=== PATIENT | male | born 1970 | race Caucasian/White ===

== ENCOUNTER 2018-09-28 11:09 | Emergency (ER) | payer BC ==
[2018-09-28] MEDS ORDERED: Bacitracin/Neomycin/Polymyxin B Oint 0.9 GM U/D Packet TOP ONE (11:12)
--- NOTE | 2018-09-28 11:12 | EDM.PDOC ---
ED HPI GENERAL MEDICAL PROBLEM - General Chief Complaint: Upper Extremity Injury/Pain Stated Complaint: left hand pain Time Seen by Provider: 09/28/18 11:12 Source of Information: Reports: Family (Daughter- Heavenly), Old Records (As below) , Other ([facility] chart/EMR including both [place] records. 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 The patient did rinse out the laceration sites with tapwater, however no subsequent treatment, including Neosporin dressings, recent NSAIDs, etc. No history of paresthesias, neurological deficits, foreign body, local signs of infection, or other complaints or injuries. He is a somewhat historian, however. He did take an oxycodone at about 9 AM this morning with current discomfort at 4/10. The patient denies any chest pain/pressure, heart flutter, orthostasis, orthopnea, diaphoresis, paresthesias, recent decreased exercise tolerance, or any other anginal-type symptoms, although occasional nonspecific dizziness. No recent history of abdominal pain, heartburn, nausea, diarrhea, melena, gross hematochezia, or any food intolerance, including fatty foods, etc.. He denies any gross hematuria, colic, or other UTI symptoms. The patient also denies any recent fever, cough, wheezing, dyspnea, etc.. No history of recent headaches, visual changes, diplopia, change in mental status, or other change in neurological status. The patient is right-handed. Onset: Sudden Onset Date: 09/27/18 Onset Time: 21:00 Duration: Constant Location: Reports: Upper Extremity, Left. Denies: Head, Face, Neck, Chest, Abdomen, Back, Pelvis, Upper Extremity, Right, Radiates to Quality: Reports: Ache Severity: Mild Improves with: Reports: Rest Worsens with: Reports: Movement Context: Reports: Trauma (As above) Associated Symptoms: Reports: No Other Symptoms. Denies: Confusion, Chest Pain , Cough, Diaphoresis, Fever/Chills, Headaches, Loss of Appetite, Malaise, Nausea /Vomiting, Rash, Seizure, Shortness of Breath, Syncope, Weakness Treatments DEVELOPMENT AND HOUSING DIRECTOR: Reports: Dressing(s), Other Medication(s) Left Hand Pain Score (Numeric/FACES): 4 - Related Data Allergies Allergy/AdvReac Type Severity Reaction Status Date / Time No Known Allergies Allergy Verified 09/28/18 11:15 Home Meds: Home Meds Amoxicillin/Potassium Clav [Augmentin 875-125 Tablet] 1 each PO BIDMEALS #20 tablet 09/28/18 [Rx] DULoxetine [Cymbalta] 60 mg PO BEDTIME 09/28/18 [History] Glycopyrrolate 1 tab PO BID 09/28/18 [History] Pregabalin [Lyrica] 1 cap PO TID 09/28/18 [History] QUEtiapine [SEROquel] 3 tab PO BEDTIME 09/28/18 [History] atorvaSTATin Calcium [Lipitor] 1 tab PO BEDTIME 09/28/18 [History] buPROPion HCl [Wellbutrin Xl] 1 tab PO BEDTIME 09/28/18 [History] oxyCODONE HCl [Oxycodone HCl] 1 - 2 tab PO Q6HR PRN 09/28/18 [History] Past Medical History HEENT History: Reports: Allergic Rhinitis, Hard of Hearing, Impaired Vision, Otitis Media, Other (See Below). Denies: Cataract, Glaucoma, Macular Degeneration, Retinal Detachment Other HEENT History: He wears glasses with occasional soft contact use. Bilateral hearing loss since childhood possibly secondary to recurrent otitis media with no previous PE tubes, etc.. No current hearing aide therapy. Cardiovascular History: Reports: Arrhythmia, High Cholesterol, Hypertension, Syncope, Other (See Below). Denies: Afib, Aneurysm, Blood Clots/VTE/DVT, CAD, Heart Failure, Heart Murmur, MS, PVD Other Cardiovascular History: History of hypotension with recurrent syncope in early 2018. Complete right bundle branch block. Genitourinary History: Reports: Chronic Renal Insuffiency, Other (See Below) Other Genitourinary History: Renal insufficiency in September 2018 with no workup to this point. Musculoskeletal History: Reports: Osteoarthritis, Other (See Below) Other Musculoskeletal History: Back surgeries as below. History of CK elevation of unknown etiology. Almonte's cyst of the right knee in November 2012 by MRI Psychiatric History: Reports: Addiction, Anxiety, Bipolar, Depression, Psych Hospitalization(s), Psychosis, Other (See Below) Other Psychiatric History: History of bipolar disorder including sade since his teenage years. Note previous history of alcohol abuse including previous alcohol treatment as below Endocrine/Metabolic History: Reports: Obesity/BMI 30+, Other (See Below) Other Endocrine/Metabolic History: Hyperhidrosis. Testosterone deficiency. Hyperglycemia in September 2018 with no workup to this point. Hematologic History: Reports: Anemia, Other (See Below). Denies: Blood Transfusion(s) Other Hematologic History: Anemia of unknown etiology in September 2018 with no workup to this point. - Past Surgical History HEENT Surgical History: Reports: Adenoidectomy, Oral Surgery, Tonsillectomy, Other (See Below) Other HEENT Surgeries/Procedures: Tonsillectomy and adenoidectomy at age 5. [place] teeth extraction 4 although in stages with last was some tooth extraction in about 1999. GI Surgical History: Reports: Appendectomy, Other (See Below) Other GI Surgeries/Procedures: Appendectomy on 06/02/00. Male Surgical History: Reports: Circumcision, Vasectomy, Other (See Below) Other Male Surgeries/Procedures: Circumcision as an . Vasectomy 2005. Neurological Surgical History: Reports: Discectomy, Lumbar Spine, Spinal Fusion , Other (See Below) Other Neurological Surgeries/Procedures: L-spine discectomy with spinal fusion on 08/17/18 with subsequent hardware removal and lumbar bone graft with additional fusion? on 09/15/18. Musculoskeletal Surgical History: Reports: Arthroscopic Knee, Arthroscopic Procedure, Other (See Below) Other Musculoskeletal Surgeries/Procedures:: Right knee arthroscopic surgery in September 2003 with subsequent right medial meniscal repair in 2012. - Past Imaging History Past Imaging History: Reports: Cardiac Echo (05/09/18 with ejection fraction of 60 65 percent.), MRI (Right knee on 11/28/12) Social & Family History - Tobacco Use Smoking Status *Q: Current Every Day Smoker Tobacco Use Within Last Twelve Months: Snuff/Dip Years of Tobacco use: 24 Packs/Tins Daily: 0.5 Used Tobacco, but Quit: No Smoking Cessation Information Provided To Patient: Yes Second Hand Smoke Exposure: No - Caffeine Use Caffeine Use: Reports: Soda (4 sodas per day). Denies: Coffee, Energy Drinks, Tea - Alcohol Use Alcohol Use History: Yes Days Per Week of Alcohol Use: 2 Number of Drinks Per Day: 2 Number of Drinks Per Day Comment: Usually beer. DUI in 1993 with previous alcohol treatment in about 2007. Total Drinks Per Week: 4 Alcohol Use in Last Twelve Months: Yes Alcohol Use Frequency: Weekly - Recreational Drug Use Recreational Drug Use: No Drug Use in Last 12 Months: No Recreational Drug Type: Denies: Amphetamines (Speed), Cocaine, Heroin, Inhalants (Glues, Solvents, Aerosols), LSD (Acid), Methamphetamine, Oxycodone - Living Situation & Occupation Living situation: Reports: (2014, 3 children), with Family (Daughter, Heavenly) Occupation: Employed ([employer]) Review of Systems - Review of Systems Review Of Systems: ROS reveals no pertinent complaints other than HPI. ED EXAM, GENERAL - Physical Exam Exam: See Below Exam Limited By: No Limitations General Appearance: Alert, WD/WN, No Apparent Distress, Anxious (Borderline) Head: Atraumatic, Normocephalic. No: Facial Swelling, Facial Tenderness, Sinus Tenderness Neck: Normal Inspection, Supple, Non-Tender, Full Range of Motion. No: Lymphadenopathy (L), Lymphadenopathy (R), Thyromegaly Respiratory/Chest: No Respiratory Distress, Lungs Clear, Normal Breath Sounds, No Accessory Muscle Use, Chest Non-Tender. No: Pleural Rub, Retractions Cardiovascular: Normal Peripheral Pulses, Regular Rate, Rhythm, No Edema, No Gallop, No JVD, No Murmur, No Rub. No: Gallop/S3, Gallop/S4, Friction Rub Peripheral Pulses: 2+: Radial (L), Radial (R) GI/Abdominal: Normal Bowel Sounds, Soft, Non-Tender, No Organomegaly, No Distention, No Abnormal Bruit, No Mass, Other (obese). No: Guarding (Male) Exam: Deferred Rectal (Males) Exam: Deferred Back Exam: Decreased Range of Motion (Secondary to recent back surgery), Paraspinal Tenderness (Mild at operative site), Other (10 cm in length surgical site in the lumbar region with shahab in place with no evidence of drainage, erythema, or local signs of infection. Approximately 23 centimeter area of moderate swelling in the superior aspect of operative site, however.). No: CVA Tenderness (L), CVA Tenderness (R), Muscle Spasm Extremities: No Pedal Edema, Normal Capillary Refill, Limited Range of Motion ( Digits #2 and 3 of the left hand secondary to lacerations/discomfort however no evidence of significant tendon involvement), Other (Irregular 8 cm in length somewhat deeper lacerations over the extensor surfaces of the second and third fingers with no evidence of foreign body, acute bleeding, drainage, or signs of infection. Moderate eschar formation. No evidence of joint or significant nerve involvement patient able to make a fist, movehis fingers, etc.). No: Non- Tender (Mild palpation pain at laceration sites as below), Slow Capillary Refill , Joint Swelling, Julienne's Sign, Increased Warmth, Redness Neurological: Alert, Oriented, CN II-XII Intact, Normal Cognition, Normal Gait, Normal Reflexes, No Motor/Sensory Deficits Psychiatric: Anxious (Borderline), Depressed Mood (Borderline), Flat Affect ( Mild). No: Tearful Skin Exam: Wound/Incision (As above). No: Diaphoretic, Ecchymosis, Erythema, Lymphangitis, Pallor Lymphatic: No Adenopathy ED TRAUMA EXTREMITY PROCEDURES - Splinting Left 2nd Digit Splint Site: Digit #2 of the left hand Pre-Procedure NV Status: Normal Post-Procedure NV Status: Normal Splint Material: Aluminum-Foam (3 hole padded finger splint) Splint Design: Extensor (/Flexor) Applied & Form Fitted By: Nurse Provider Post-Splint Application NV Check: NV Status Normal, Good Position Complications: No Course - Vital Signs Last Recorded V/S: Last Vital Signs Temp 35.9 C 09/28/18 11:11 Pulse 90 09/28/18 12:40 Resp 18 09/28/18 12:40 BP 104/68 09/28/18 12:40 Pulse Ox 96 09/28/18 12:40 Vital Signs - 24 hr 09/28/18 09/28/18 09/28/18 11:11 11:20 12:04 Temperature [ 35.9 C Temporal] Pulse, 97 100 96 Peripheral [ Pulse Oximetry] Respiratory 18 18 Rate Blood Pressure 78/45 L 86/50 L 85/53 L [Right Arm] O2 Sat by Pulse 95 94 L Oximetry 09/28/18 12:40 Temperature [ Temporal] Pulse, 90 Peripheral [ Pulse Oximetry] Respiratory 18 Rate Blood Pressure 104/68 [Right Arm] O2 Sat by Pulse 96 Oximetry - Orders/Labs/Meds Orders: Active Orders 24 hr Category Date Time Status Cardiac Monitoring [RC] . DIRECTED Care 09/28/18 11:21 Active Peripheral IV Care [RC] . DIRECTED Care 09/28/18 11:20 Active Vaccines to be Administered [RC] PER UNIT ROUTINE Care 09/28/18 12:51 Active Hand Comp Min 3V Lt [CR] Stat Exams 09/28/18 11:15 Taken Sodium Chloride 0.9% [Saline Flush] Med 09/28/18 11:20 Active 10 ml FLUSH ASDIRECTED PRN Obtain Past Medical Record [OM.PC] Routine Oth 09/28/18 11:13 Active Peripheral IV Insertion Adult [OM.PC] Routine Oth 09/28/18 11:20 Ordered Medication Orders Sodium Chloride (Saline Flush) 10 ml FLUSH ASDIRECTED PRN PRN Reason: Keep Vein Open Labs: Laboratory Tests 09/28/18 09/28/18 09/28/18 Range/Units 11:25 11:25 11:25 WBC 9.2 (4.0-10.2) K/uL RBC 3.74 L (4.33-5.41) M/uL Hgb 10.6 L D (13.1-16.8) g/dL Hct 31.1 L (39.0-49.0) % MCV 83.2 L (84.0-98.0) fL MCH 28.3 (28.2-33.3) pg MCHC 34.1 (31.7-36.0) g/dL RDW 12.8 (11.2-14.1) % Plt Count 332 D (150-350) K/uL Neut % (Auto) 64.8 (45.0-80.0) % Lymph % (Auto) 21.8 (10.0-50.0) % [place] % (Auto) 10.7 (2.0-14.0) % Eos % (Auto) 2.3 (0.0-5.0) % Baso % (Auto) 0.4 (0.0-2.0) % Neut # (Auto) 5.98 (1.40-7.00) K/uL Lymph # (Auto) 2.01 (0.50-3.50) K/uL [place] # (Auto) 0.99 (0.00-1.00) K/uL Eos # (Auto) 0.21 (0.00-0.50) K/uL Baso # (Auto) 0.04 (0.00-0.20) K/uL Sodium 132 L (136-145) mmol/L Potassium 4.4 (3.5-5.1) mmol/L Chloride 97 L (98-107) mmol/L Carbon Dioxide 23.4 (21.0-32.0) mmol/L BUN 21 H (7-18) mg/dL Creatinine 1.92 H (0.51-1.17) mg/dL Est Cr Clr Drug Dosing 55.30 mL/min Estimated GFR (MDRD) 38 mL/min Glucose 113 H (74-106) mg/dL Lactic Acid 2.4 H (0.4-2.0) mmol/L Calcium 9.5 (8.5-10.1) mg/dL Total Bilirubin 0.3 (0.2-1.0) mg/dL AST 19 (15-37) U/L ALT 36 (12-78) U/L Alkaline Phosphatase 137 H (46-116) IU/L Total Protein 7.1 (6.4-8.2) g/dL Albumin 3.7 (3.4-5.0) g/dL Meds: Medications Generic Name Dose Route Start Last Admin Trade Name Freq PRN Reason Stop Dose Admin Sodium Chloride 10 ml 09/28/18 11:20 Saline Flush FLUSH ASDIRECTED PRN Keep Vein Open Discontinued Medications Generic Name Dose Route Start Last Admin Trade Name Freq PRN Reason Stop Dose Admin Diphtheria/Tetanus/Acell Pertussis 0.5 ml 09/28/18 12:51 09/28/18 13:12 Adacel IM 09/28/18 12:52 0.5 ml .ONCE ONE Administration Lactated Ringer's 1,000 mls @ 999 mls/hr 09/28/18 11:20 09/28/18 11:31 Ringers, Lactated IV 09/28/18 12:20 999 mls/hr .BOLUS ONE Administration Neomycin/Polymyxin/Bacitracin 1 each 09/28/18 11:12 09/28/18 13:12 Triple Antibiotic Oint TOP 09/28/18 11:13 1 each ONETIME ONE Administration - Radiology Interpretation Free Text/Narrative:: X-rays of the left hand, 3 views, with requested additional repeat lateral view shows evidence of questionable hairline fracture versus artifact of the distal aspect of the proximal phalanx of digit #2 with no evidence of foreign body, dislocation, angulation, etc. classroom monitor shows normal sinus rhythm with heart rate in the 90s with no ectopy or arrhythmia. Departure - Departure Time of Disposition: 13:50 Disposition: Home, Self-Care 01 Condition: Fair Clinical Impression: Laceration, Hyperglycemia, Renal insufficiency, Hyponatremia, Mixed anxiety depressive disorder, Tobacco abuse counseling, Lactic acid increased, Osteoarthritis Hypertension Qualifiers: Hypertension type: essential hypertension Qualified Code(s): I10 - Essential ( primary) hypertension Hypotension Qualifiers: Hypotension type: other hypotension type Qualified Code(s): I95.89 - Other hypotension Anemia Qualifiers: Anemia type: unspecified type Qualified Code(s): D64.9 - Anemia, unspecified Hyperlipidemia Qualifiers: Hyperlipidemia type: mixed hyperlipidemia Qualified Code(s): E78.2 - Mixed hyperlipidemia - Discharge Information *PRESCRIPTION DRUG MONITORING PROGRAM REVIEWED*: Not Applicable *COPY OF PRESCRIPTION DRUG MONITORING REPORT IN PATIENT HARPREET: Not Applicable Prescriptions: Amoxicillin/Potassium Clav [Augmentin 875-125 Tablet] 1 each PO BIDMEALS #20 tablet Instructions: Laceration Care, Adult, [id number] Referrals: Susan Warner PA-C [Primary Care Provider] - Forms: ED Department Discharge Additional Instructions: 1. Follow-up with your regular provider tomorrow for reevaluation of your blood pressure, anemia, recent hyperglycemia renal insufficiency, lactic acid elevation and your laceration sites with recommended repeat CBC, comprehensive metabolic panel, and lactic acid level at that time. Your regular provider should consider workup for your anemia and hyperglycemia, including possible iron studies, vitamin B 12 level, glycosylated hemoglobin, etc. 2. Tylenol 650 mg by mouth every 4 hours and/or OTC ibuprofen 2-3 tabs by mouth every 6 hours with food as directed./needed. You may stagger these medications for 48-72 hours only, which essentially means that you are receiving a pain medication about every 2 hours. 3. Antibacterial soap wash/soak with subsequent antibacterial dressing such as Neosporin, etc. as directed 2 times per day until the wound or laceration site completely heals. Keep the area clean and dry with activity restrictions as discussed. Never use hydrogen peroxide for wound care. 4. If lacerations which require repair occur in the future, you should seek immediate treatment within 6-8 hours for suture placement, etc. as discussed. 5. Wear finger splint at all times with exception of wound care until otherwise directed by your regular provider. Repeat x-rays in one week depending on your clinical course, etc. 6. Continue previous activity restrictions as per your neurosurgeon with follow -up appointment with him as scheduled on 10/03. 7. Stop all tobacco use ALLYSON as directed/per provided information and consider contacting Quit LIne, etc.. Using Nicorette gum as discussed 8. Hold all blood pressure medications until otherwise directed by your regular provider with consideration of a reduced dosage of medications and possible split dosing regimen, i.e., a.m./p.m. staggering of current medications , etc., if these are resumed. 9. Encourage oral fluids including sports drinks, etc. as discussed. 10. Immediately after this visit verify that your cellular telephone's voicemail has been activated and is empty. Also verify that your home telephone 's answering machine is operating properly and has space to receive messages. Note that it is sometimes necessary for us to be able to contact you at a later date to discuss your medical care. 11. Please remember that we are ALWAYS here for you and want to answer any questions you may have. Feel free to call the hospital any time and we call you back ALLYSON. 12. Strict no driving with fall, injury precautions, etc. until your blood pressure improves and your released by your regular provider. - Problem List & Annotations (1) Laceration SNOMED Code(s): 211103855 Code(s): IQK5777 - Status: Acute Priority: High Current Visit: Yes Onset Date: 09/27/18 Annotation/Comment:: Moderate lacerations of his left hand as above, however delayed evaluation by the patient to this provider with significant risks of infection, if laceration repair was attempted at this time. No evidence of open fracture with patient to be started on Augmentin. Patient was extensively counseled concerning the importance of early wound management. Laceration sites were extensively cleansed by the emergency room nurse with povidone iodide solution and soak with subsequent Neosporin dressing placed. Questionable artifact versus nondisplaced hairline distal proximal phalangeal fracture of digit #1 as above with patient placed in a finger splint as a precaution. Close follow-up by regular provider as per discharge instructions. The patient already has a work excuse secondary to his recent back surgery as above. Activity restrictions, wound care, etc. discussed, including no driving, fall/injury precautions secondary to his significant hypotension today as above/below. (2) Hypotension SNOMED Code(s): 01161409 Code(s): I95.9 - HYPOTENSION, UNSPECIFIED Status: Acute Priority: High Current Visit: Yes Onset Date: 09/28/18 Annotation/Comment:: Significant hypotension today and also during recent hospitalization at as below. Note previous history of hypertension. Possible sympathetic reaction from recent spinal surgery as above. Patient blood pressure did improve prior to discharge after 1 L IV bolus of lactated Ringer's. No clinical orthostasis at discharge. Note previous history of recurrent syncopal episode secondary to hypotension earlier this year by patient history as above. Qualifiers: Hypotension type: other hypotension type Qualified Code(s): I95.89 - Other hypotension (3) Lactic acid increased SNOMED Code(s): 96176526 Code(s): E87.2 - ACIDOSIS Status: Acute Priority: High Current Visit: Yes Onset Date: 09/28/18 Annotation/Comment:: No evidence of fever, significant local infection from his lacerations, leukocytosis, etc. Note hypotension as above, however. IV lactated Ringer's given during his care today as above. Close follow-up by his regular provider as per discharge instructions. (4) Hypertension SNOMED Code(s): 06236870 Code(s): I10 - ESSENTIAL (PRIMARY) HYPERTENSION Status: Acute Priority: High Current Visit: Yes Annotation/Comment:: Currently under aggressive medical therapy with significant hypotension today as above. Blood Pressure medications are to be held for the time being with evidence of significant hypotension also noted in recent hospitalization at with no apparent change in medical therapy or treatment by patient history and review of [facility] EMR. Close follow-up, possible medication changes, etc. I his regular provider as per discharge instructions. The patient did take his medications yesterday evening. Qualifiers: Hypertension type: essential hypertension Qualified Code(s): I10 - Essential (primary) hypertension (5) Hyperglycemia SNOMED Code(s): 85641958 Code(s): R73.9 - HYPERGLYCEMIA, UNSPECIFIED Status: Chronic Priority: Medium Current Visit: Yes Annotation/Comment:: Review of recent hospitalization records in the [facility] EMR indicates persistent mild hyperglycemia. Glycosylated hemoglobin, weight loss in moderation, dietary changes, etc. encouraged with close follow-up by regular provider as per discharge instructions. (6) Renal insufficiency SNOMED Code(s): 354756078, 334709869 Code(s): N28.9 - DISORDER OF KIDNEY AND URETER, UNSPECIFIED Status: Acute Priority: High Current Visit: Yes Annotation/Comment:: Intermittent renal insufficiency based on a review of recent hospitalization records from [facility]. Note persistent renal insufficiency today. IV lactated Ringer's given in the emergency room. Close follow-up by regular provider as per discharge instructions. (7) Hyponatremia SNOMED Code(s): 50316713 Code(s): E87.1 - HYPO-OSMOLALITY AND HYPONATREMIA Status: Acute Priority : Medium Current Visit: Yes Onset Date: 09/28/18 Annotation/Comment:: IV lactated Ringer's given in the emergency room. Close follow-up by regular provider including repeat blood work tomorrow. (8) Mixed anxiety depressive disorder SNOMED Code(s): 168368874 Code(s): F41.8 - OTHER SPECIFIED ANXIETY DISORDERS Status: Chronic Priority: Medium Current Visit: Yes Annotation/Comment:: Stable by patient history and current medical therapy. Note previous history of alcohol abuse, sade and psychosis with continued close observation by his medical provider. (9) Anemia SNOMED Code(s): 095160897 Code(s): D64.9 - ANEMIA, UNSPECIFIED Status: Chronic Priority: Medium Current Visit: Yes Annotation/Comment:: Moderate anemia during recent hospitalization at [facility] including hemoglobin in the 9s with improved anemia today. No transfusions or previous workup to this point per patient history. Close follow-up by regular provider, including further blood work, etc. as per discharge instructions. Renal insufficiency may be a cofactor. No evidence of abdominal pain, GI bleed, etc. Qualifiers: Anemia type: unspecified type Qualified Code(s): D64.9 - Anemia, unspecified (10) Tobacco abuse counseling SNOMED Code(s): 442010006, 079830979, 596758757 Code(s): Z71.6 - TOBACCO ABUSE COUNSELING Status: Chronic Priority: Medium Current Visit: Yes Annotation/Comment:: Chewing Tobacco cessation strongly encouraged with the patient counseled on use of Nicorette gum. (11) Hyperlipidemia SNOMED Code(s): 54226086 Code(s): E78.5 - HYPERLIPIDEMIA, UNSPECIFIED Status: Chronic Priority: Medium Annotation/Comment:: Currently under medical therapy. Qualifiers: Hyperlipidemia type: mixed hyperlipidemia Qualified Code(s): E78.2 - Mixed hyperlipidemia (12) Osteoarthritis SNOMED Code(s): 642158309 Code(s): M19.90 - UNSPECIFIED OSTEOARTHRITIS, UNSPECIFIED SITE Status: Chronic Priority: Medium Annotation/Comment:: Note recent multiple back surgeries as above with hospital discharge from [facility] on 09/23/18. He already has a follow-up appointment scheduled with TRISTON Goncalves at the orthopedic clinic at [facility] on 10/03 with probable staple removal at that time. No evidence of postoperative infection from this site, however. His arthritis is otherwise stable by history Qualifiers: Osteoarthritis location: multiple joints Osteoarthritis type: primary Qualified Code(s): M15.0 - Primary generalized (osteo)arthritis - Problem List Review Problem List Initiated/Reviewed/Updated: Yes - My Orders Last 24 Hours: My Active Orders 09/28/18 11:13 Obtain Past Medical Record [OM.PC] Routine 09/28/18 11:15 Hand Comp Min 3V Lt [CR] Stat 09/28/18 11:20 Peripheral IV Care [RC] . DIRECTED Sodium Chloride 0.9% [Saline Flush] 10 ml FLUSH ASDIRECTED PRN Peripheral IV Insertion Adult [OM.PC] Routine 09/28/18 11:21 Cardiac Monitoring [RC] . DIRECTED 09/28/18 12:51 Vaccines to be Administered [RC] PER UNIT ROUTINE - Assessment/Plan Last 24 Hours: My Active Orders 09/28/18 11:13 Obtain Past Medical Record [OM.PC] Routine 09/28/18 11:15 Hand Comp Min 3V Lt [CR] Stat 09/28/18 11:20 Peripheral IV Care [RC] . DIRECTED Sodium Chloride 0.9% [Saline Flush] 10 ml FLUSH ASDIRECTED PRN Peripheral IV Insertion Adult [OM.PC] Routine 09/28/18 11:21 Cardiac Monitoring [RC] . DIRECTED 09/28/18 12:51 Vaccines to be Administered [RC] PER UNIT ROUTINE Assessment:: As above Plan: As above. Extensive precautions were given to the patient and his daughter, who are in agreement with the treatment plan. See Patient Instructions for further treatment and plan.
[2018-09-28] MEDS ORDERED: Lactated Ringers 1,000 ML IV ONE (11:20)
[2018-09-28] MEDS ORDERED: Sodium Chloride 0.9% 10 ML Syringe FLUSH PRN (11:20)
[2018-09-28] MEDS ORDERED: Diphtheria,Pertussis(Acell),Tetanus Vaccine 0.5 ML SDV IM ONE (12:51)
== END 2018-09-28 13:50 | disposition home or self-care (01) ==
LOC: LL.ED 11:09
DX: S66.323A Laceration of extensor muscle, fascia and tendon of left middle finger at wrist and hand level, initial encounter (principal); S66.321A Laceration of extensor muscle, fascia and tendon of left index finger at wrist and hand level, initial encounter; I95.89 Other hypotension; I12.9 Hypertensive chronic kidney disease with stage 1 through stage 4 chronic kidney disease, or unspecified chronic kidney disease; N18.9 Chronic kidney disease, unspecified; E87.1 Hypo-osmolality and hyponatremia; R73.9 Hyperglycemia, unspecified; F41.8 Other specified anxiety disorders; E87.2 Acidosis; M19.90 Unspecified osteoarthritis, unspecified site; D64.9 Anemia, unspecified; E78.2 Mixed hyperlipidemia; Z71.6 Tobacco abuse counseling; E78.00 Pure hypercholesterolemia, unspecified; F17.210 Nicotine dependence, cigarettes, uncomplicated; Z23 Encounter for immunization; Z79.899 Other long term (current) drug therapy; W31.1XXA Contact with metalworking machines, initial encounter
CPT/HCPCS: 36415; 73130; 80053; 83605; 85025; 90471; 90715; 96360; 99283; J7120

== ENCOUNTER 2019-11-29 16:18 | Emergency (ER) | payer BC ==
--- NOTE | 2019-11-29 16:26 | EDM.PDOC ---
ED HPI GENERAL MEDICAL PROBLEM - General Chief Complaint: Upper Extremity Injury/Pain Stated Complaint: left thumb, index, and middle finger lacertaions Time Seen by Provider: 11/29/19 16:26 Source of Information: Reports: Patient, Old Records ([facility] chart/EMR), Other ([facility] records and [facility] EMR records reviewed on 09/28/2018.) History Limitations: Reports: No Limitations - History of Present Illness INITIAL COMMENTS - FREE TEXT/NARRATIVE: Patient was brought to the emergency room via private automobile by his daughter for evaluation of 10/10 left thumb pain after the patient 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 He denies any foreign body, paresthesias, neurological deficits, or other complaints or injuries. No extensive treatment prior to arrival, including rinsing with tap water, pain medications, etc., although he did loosely applied a dressing prior to coming to this facility. The patient is right-handed and has not injured this hand or digit in the past. The patient denies any chest pain/pressure, heart flutter, dizziness, orthostasis, orthopnea, diaphoresis, paresthesias, recent decreased exercise tolerance, or any other anginal-type symptoms. No recent history of abdominal pain, heartburn, nausea, diarrhea, melena, gross hematochezia, or any food intolerance, including fatty foods, etc.. The patient also denies any recent fever, cough, wheezing, dyspnea, etc.. Onset: Today, Sudden Onset Date: 11/29/19 Onset Time: 16:00 Duration: Constant Location: Reports: Upper Extremity, Left. Denies: Head, Face, Neck, Chest, Abdomen, Back, Pelvis, Upper Extremity, Right, Radiates to Quality: Reports: Same as Previous Episode, Throbbing Severity: Severe Improves with: Reports: None Worsens with: Reports: None Context: Reports: Trauma (As above) Associated Symptoms: Denies: Confusion, Chest Pain, Cough, Diaphoresis, Fever/Chills, Headaches, Loss of Appetite, Malaise, Nausea/Vomiting, Shortness of Breath, Syncope, Weakness Treatments SYSTEMS INTEGRATOR: Reports: Dressing(s) Left Finger-Thumb Pain Score (Numeric/FACES): 10 - Related Data Allergies Allergy/AdvReac Type Severity Reaction Status Date / Time No Known Allergies Allergy Verified 11/29/19 16:20 Home Meds: Home Meds QUEtiapine [SEROquel] 3 tab PO BEDTIME 09/28/18 [History] Amoxicillin/Potassium Clav [Augmentin 875-125 Tablet] 1 each PO BIDMEALS #20 tablet 11/29/19 [Rx] Gabapentin [Neurontin] 1 cap PO TID 11/29/19 [History] Past Medical History HEENT History: Reports: Allergic Rhinitis, Hard of Hearing, Impaired Vision, Otitis Media, Other (See Below). Denies: Cataract, Glaucoma, Macular Degeneration, Retinal Detachment Other HEENT History: He wears glasses with occasional soft contact use. Bilateral hearing loss since childhood possibly secondary to recurrent otitis media with no previous PE tubes, etc.. No current hearing aide therapy. Cardiovascular History: Reports: Arrhythmia, High Cholesterol, Hypertension, Syncope, Other (See Below). Denies: Afib, Angina, Blood Clots/VTE/DVT, CAD, Heart Murmur, NE, PVD Other Cardiovascular History: History of hypotension with recurrent syncope in early 2018. Complete right bundle branch block. Genitourinary History: Reports: Chronic Renal Insuffiency, Other (See Below) Other Genitourinary History: Renal insufficiency in September 2018 with no workup to this point. Musculoskeletal History: Reports: Arthritis, Back Pain, Chronic, Osteoarthritis, Other (See Below) Other Musculoskeletal History: Back surgeries as below. History of CK elevation of unknown etiology. Almonte's cyst of the right knee in November 2012 by MRI Psychiatric History: Reports: Addiction, Anxiety, Bipolar, Depression, Psych Hospitalization(s), Psychosis, Other (See Below) Other Psychiatric History: History of bipolar disorder including sade since his teenage years. Note previous history of alcohol abuse including previous alcohol treatment as below Endocrine/Metabolic History: Reports: Obesity/BMI 30+, Other (See Below) Other Endocrine/Metabolic History: Hyperhidrosis. Testosterone deficiency. Hyperglycemia in September 2018 with no workup to this point. Hyponatremia. Hematologic History: Reports: Anemia, Other (See Below) Other Hematologic History: Anemia of unknown etiology in September 2018 with no workup to this point. - Past Surgical History HEENT Surgical History: Reports: Adenoidectomy, Oral Surgery, Tonsillectomy, Other (See Below) Other HEENT Surgeries/Procedures: Tonsillectomy and adenoidectomy at age 5. [place] teeth extraction 4 although in stages with last wisdom tooth extraction in about 1999. GI Surgical History: Reports: Appendectomy, Other (See Below) Other GI Surgeries/Procedures: Appendectomy on 06/02/00. Male Surgical History: Reports: Circumcision, Vasectomy, Other (See Below) Other Male Surgeries/Procedures: Circumcision as an . Vasectomy 2005. Neurological Surgical History: Reports: Discectomy, Lumbar Spine, Spinal Fusion, Other (See Below) Other Neurological Surgeries/Procedures: L-spine discectomy with spinal fusion on 08/17/18 with subsequent hardware removal and lumbar bone graft with additional fusion? on 09/15/18. Musculoskeletal Surgical History: Reports: Arthroscopic Knee, Arthroscopic Procedure, Other (See Below) Other Musculoskeletal Surgeries/Procedures:: Right knee arthroscopic surgery in September 2003 with subsequent right medial meniscal repair in 2012. - Past Imaging History Past Imaging History: Reports: Cardiac Echo (05/09/18 with ejection fraction of 6065 percent.), MRI (Right knee on 11/28/12) Social & Family History - Tobacco Use Smoking Status *Q: Current Every Day Smoker Tobacco Use Within Last Twelve Months: Snuff/Dip Years of Tobacco use: 25 Packs/Tins Daily: 0.5 Used Tobacco, but Quit: No Smoking Cessation Information Provided To Patient: Yes Second Hand Smoke Exposure: No Second Hand Smoke Education Provided: No - Caffeine Use Caffeine Use: Reports: Soda (4 sodas per day). Denies: Coffee, Energy Drinks, Tea - Alcohol Use Alcohol Use History: Yes Days Per Week of Alcohol Use: 2 Number of Drinks Per Day: 2 Number of Drinks Per Day Comment: Usually beer. [place] 1993 with previous alcohol treatment in about 2007. Total Drinks Per Week: 4 Alcohol Use in Last Twelve Months: Yes - Recreational Drug Use Recreational Drug Use: No Recreational Drug Type: Denies: Amphetamines (Speed), Cocaine, Heroin, Inhalants (Glues, Solvents, Aerosols), LSD (Acid), Marijuana/Hashish, Methamphetamine, Morphine, Oxycodone - Living Situation & Occupation Living situation: Reports: (2013, 3 children), with Family (Daughter, Heavenly) Occupation: Employed ([employer]) Review of Systems - Review of Systems Review Of Systems: Comprehensive ROS is negative, except as noted in HPI. ED EXAM, GENERAL - Physical Exam Exam: See Below Exam Limited By: No Limitations General Appearance: Alert, WD/WN, No Apparent Distress, Anxious (Mild to moderate) Head: Atraumatic, Normocephalic. No: Facial Swelling, Facial Tenderness, Sinus Tenderness Neck: Normal Inspection, Supple, Non-Tender, Full Range of Motion. No: Lymphadenopathy (L), Lymphadenopathy (R), Thyromegaly Respiratory/Chest: No Respiratory Distress, Lungs Clear, Normal Breath Sounds, No Accessory Muscle Use, Chest Non-Tender. No: Pleural Rub, Retractions Cardiovascular: Normal Peripheral Pulses, Regular Rate, Rhythm, No Edema, No Gallop, No JVD, No Murmur, No Rub. No: Gallop/S3, Gallop/S4, Friction Rub Peripheral Pulses: 2+: Radial (L), Radial (R) GI/Abdominal: Normal Bowel Sounds, Soft, Non-Tender, No Organomegaly, No Distention, No Abnormal Bruit, No Mass, Pelvis Stable, Other (Obese). No: Guarding (Male) Exam: Deferred Rectal (Males) Exam: Deferred Back Exam: Normal Inspection, Full Range of Motion. No: CVA Tenderness (L), CVA Tenderness (R), Muscle Spasm Extremities: Normal Range of Motion, No Pedal Edema, Normal Capillary Refill. No: Non-Tender (Moderate palpation pain over laceration site of his left thumb with no deformity however mild swelling and ecchymosis. 1 cm denudement injury over the ulnar surface of the periungual region of the thumbnail with laceration through the thumbnail however no significant acute bleeding in spite of probable mild nail bed injury. No direct evidence of foreign body. Additional 0.5 cm superficial laceration over the radial surface of the distal phalanx of digit #2 of the left hand with no evidence of foreign body, significant injury, etc.), Julienne's Sign Neurological: Alert, Oriented, CN II-XII Intact, Normal Cognition, Normal Gait, Normal Reflexes, No Motor/Sensory Deficits Psychiatric: Anxious (Moderate), Depressed Mood (Mild) Skin Exam: Ecchymosis (As above), Tattoo(s), Wound/Incision (As above). No: Diaphoretic Lymphatic: No Adenopathy Course - Vital Signs Text/Narrative:: Vital Signs - 24 hr 11/29/19 16:35 Temperature [ 36.4 C Temporal] Pulse, 78 Peripheral [ Pulse Oximetry] Respiratory 19 Rate Blood Pressure 132/77 [Right Upper Arm] O2 Sat by Pulse 97 Oximetry Last Recorded V/S: Last Vital Signs Temp 36.4 C 11/29/19 16:35 Pulse 78 11/29/19 16:35 Resp 19 11/29/19 16:35 BP 132/77 11/29/19 16:35 Pulse Ox 97 11/29/19 16:35 Vital Signs - 24 hr 11/29/19 16:35 Temperature [ 36.4 C Temporal] Pulse, 78 Peripheral [ Pulse Oximetry] Respiratory 19 Rate Blood Pressure 132/77 [Right Upper Arm] O2 Sat by Pulse 97 Oximetry - Orders/Labs/Meds Orders: Active Orders 24 hr Category Date Time Status Fingers Thumb Lt FA [CR] Stat Exams 11/29/19 16:29 Taken Durable Medical Equipment for Discharge [DME for Oth 11/29/19 16:59 Ordered Discharge] [COMM] Routine Obtain Past Medical Record [OM.PC] Routine Oth 11/29/19 16:29 Active Labs: None Meds: Medications Discontinued Medications Generic Name Dose Route Start Last Admin Trade Name Freq PRN Reason Stop Dose Admin Amoxicillin/Clavulanate Potassium 1 tab 11/29/19 16:59 11/29/19 17:25 Augmentin 875 Mg/125 Mg PO 11/29/19 17:00 1 tab ONETIME ONE Administration Ketorolac Tromethamine 60 mg 11/29/19 16:29 11/29/19 16:47 Toradol IM 11/29/19 16:30 60 mg ONETIME ONE Administration Neomycin/Polymyxin/Bacitracin 1 each 11/29/19 16:29 11/29/19 16:48 Triple Antibiotic Oint TOP 11/29/19 16:30 1 each ONETIME ONE Administration - Radiology Interpretation Free Text/Narrative:: X-rays of digit #1 of the left hand, complete, shows evidence of minimally angulated and displaced midshaft fracture of the distal phalanx with no evidence of foreign body, dislocation, etc. Soft tissue injury noted. Departure - Departure Time of Disposition: 17:32 Disposition: Home, Self-Care 01 Condition: Good Clinical Impression: Open fracture dislocation of finger or thumb, Laceration, Mixed anxiety depressive disorder, Tobacco abuse counseling Hypertension Qualifiers: Hypertension type: essential hypertension Qualified Code(s): I10 - Essential (primary) hypertension Osteoarthritis Qualifiers: Osteoarthritis location: multiple joints Osteoarthritis type: primary Qualified Code(s): M89.49 - Other hypertrophic osteoarthropathy, multiple sites - Discharge Information *PRESCRIPTION DRUG MONITORING PROGRAM REVIEWED*: Not Applicable *COPY OF PRESCRIPTION DRUG MONITORING REPORT IN PATIENT HARPREET: Not Applicable Prescriptions: Amoxicillin/Potassium Clav [Augmentin 875-125 Tablet] 1 each PO BIDMEALS #20 tablet Instructions: Health Risks of Smoking, Finger Fracture, Adult, [id number], Laceration Care, Adult, [id number], Smokeless Tobacco Information, Adult Referrals: Curtis Umaña PA [Primary Care Provider] - Forms: ED Department Discharge, ED Return to Work/School Form Additional Instructions: 1. Followup with your regular provider in 7 days as directed for reevaluation and repeat x-ray of the left thumb. Bring these discharge instructions with you to that visit. 2. Tylenol 650 mg by mouth every 4 hours and/or OTC ibuprofen 2-3 tabs by mouth every 6 hours with food as directed./needed. You may stagger these medications for 48-72 hours only, which essentially means that you are receiving a pain medication about every 2 hours. Next dose of ibuprofen in 6 hours as needed secondary to medications given in the emergency room 3. Antibacterial soap wash/soak with subsequent antibacterial dressing such as Neosporin, etc. as directed 2 times per day until the wound or laceration site completely heals. Keep the area clean and dry with activity restrictions as discussed. Never use hydrogen peroxide for wound care. 4. Remove dressing tomorrow morning with subsequent finger splint to be worn at all times with exception of wound care and bathing until otherwise directed by your regular provider 5. Stop all tobacco use [place] as directed/per provided information and consider contacting Quit LIne, etc.. 6. Immediately after this visit verify that your cellular telephone's voicemail has been activated and is empty. Also verify that your home telephone's answering machine is operating properly and has space to receive messages. Note that it is sometimes necessary for us to be able to contact you at a later date to discuss your medical care. 7. Please remember that we are ALWAYS here for you and want to answer any questions you may have. Feel free to call the hospital any time and we call you back [place]. Sepsis Event Note (ED) - Focused Exam Vital Signs: Vital Signs Temp Pulse Resp BP Pulse Ox 11/29/19 16:35 36.4 C 78 19 132/77 97 - Problem List & Annotations (1) Open fracture dislocation of finger or thumb SNOMED Code(s): 195374938 Code(s): PXK2378 - Status: Acute Priority: High Onset Date: 11/29/19 Annotation/Comment:: Patient is currently on vacation and is to return to work on 12/03/2019. [place] work excuse was provided. Activity restrictions were discussed. Finger splint to be worn at all times as per discharge instructions. Augmentin therapy initiated in the emergency room secondary to open fracture. Diarrhea, etc. precautions were given. Two hole padded aluminum finger splint was provided to the patient prior to discharge with the therapy to be initiated tomorrow after his dressing is removed as per discharge instructions. (2) Laceration SNOMED Code(s): 946284204 Code(s): [id number] - Status: Acute Priority: High Onset Date: 09/27/18 Annotation/Comment:: TDAP given in this facility on 09/28/2018, which was confirmed today through our medical records. Laceration is not amenable for repair with bleeding under good control prior to discharge. Patient is aware that he may lose his thumbnail. Activity restrictions, wound care, etc. were extensively discussed. Nurse did clean the laceration site thoroughly with antibacterial soap with additional Neosporin tube gauze pressure dressing placed. Finger splint provided as above. (3) Hypertension SNOMED Code(s): 54819949 Code(s): I10 - ESSENTIAL (PRIMARY) HYPERTENSION Status: Acute Priority: High Annotation/Comment:: Blood pressures under good control in the emergency room. Continue to observe closely by his regular provider. Qualifiers: Hypertension type: essential hypertension Qualified Code(s): I10 - Essential (primary) hypertension (4) Mixed anxiety depressive disorder SNOMED Code(s): 241093961 Code(s): F41.8 - OTHER SPECIFIED ANXIETY DISORDERS Status: Chronic Priority: Medium Annotation/Comment:: Stable by patient history and current medical therapy. Note previous history of alcohol abuse, sade and psychosis with continued close observation by his medical provider. (5) Osteoarthritis SNOMED Code(s): 550757387 Code(s): M19.90 - UNSPECIFIED OSTEOARTHRITIS, UNSPECIFIED SITE Status: Chronic Priority: Medium Annotation/Comment:: Otherwise stable by history with no evidence of other injuries. Qualifiers: Osteoarthritis location: multiple joints Osteoarthritis type: primary Qualified Code(s): M89.49 - Other hypertrophic osteoarthropathy, multiple sites (6) Tobacco abuse counseling SNOMED Code(s): 191434721, [id number], [id number] Code(s): Z71.6 - TOBACCO ABUSE COUNSELING Status: Chronic Priority: Medium Annotation/Comment:: Chewing Tobacco cessation was once again strongly encouraged with cessation information provided, and the patient counseled on use of Nicorette gum. - Problem List Review Problem List Initiated/Reviewed/Updated: Yes - My Orders Last 24 Hours: My Active Orders 11/29/19 16:29 Fingers Thumb Lt FA [CR] Stat Obtain Past Medical Record [OM.PC] Routine 11/29/19 16:59 Durable Medical Equipment for Discharge [DME for Discharge] [COMM] Routine - Assessment/Plan Last 24 Hours: My Active Orders 11/29/19 16:29 Fingers Thumb Lt FA [CR] Stat Obtain Past Medical Record [OM.PC] Routine 11/29/19 16:59 Durable Medical Equipment for Discharge [DME for Discharge] [COMM] Routine Assessment:: As above Plan: As above. Extensive precautions were given to the patient, who is in agreement with the treatment plan. See Patient Instructions for further treatment and plan.
[2019-11-29] MEDS: Ketorolac 60 MG/2 ML SDV IM ONE (16:47)
[2019-11-29] MEDS: Bacitracin/Neomycin/Polymyxin B Oint 0.9 GM U/D Packet TOP ONE (16:48)
[2019-11-29] MEDS: Amoxicillin/Clavulanate K 875-125 MG Tab PO ONE (17:25)
== END 2019-11-29 17:32 | disposition home or self-care (01) ==
LOC: LL.ED 16:18
DX: S62.522B Displaced fracture of distal phalanx of left thumb, initial encounter for open fracture (principal); F41.9 Anxiety disorder, unspecified; F32.9 Major depressive disorder, single episode, unspecified; Z71.6 Tobacco abuse counseling; I10 Essential (primary) hypertension; M89.49 Other hypertrophic osteoarthropathy, multiple sites; Z79.899 Other long term (current) drug therapy; E78.00 Pure hypercholesterolemia, unspecified; E66.9 Obesity, unspecified; F17.210 Nicotine dependence, cigarettes, uncomplicated; X58.XXXA Exposure to other specified factors, initial encounter
CPT/HCPCS: 73140; 96372; 99283; A9270; J1885; 99284

== ENCOUNTER 2021-04-23 07:53 | Day surgery (SDC) | payer BC ==
[2021-04-23] MEDS ORDERED: Sodium Chloride 0.9% 10 ML Syringe FLUSH PRN (08:00)
[2021-04-23] MEDS ORDERED: fentaNYL 100 MCG/2 ML SDV ONE ×3 (08:37→09:16)
[2021-04-23] MEDS ORDERED: Midazolam 1 MG/ML 2 ML SDV ONE ×3 (08:38→09:16)
[2021-04-23] MEDS ORDERED: Propofol 200 MG/20 ML SDV ONE ×2 (08:38→09:12)
[2021-04-23] MEDS: Lactated Ringers 1,000 ML IV SCH (08:47)
[2021-04-23] MEDS ORDERED: Glycopyrrolate 0.2 MG/ML SDV ONE (09:12)
[2021-04-23] MEDS ORDERED: Ketorolac 30 MG/ML SDV ONE (09:12)
[2021-04-23] MEDS ORDERED: Ondansetron 4 MG/2 ML SDV ONE (09:12)
[2021-04-23] MEDS ORDERED: Ketamine 500 mg/10 ML MDV ONE ×2 (09:12→09:16)
[2021-04-23] MEDS: Lidocaine 2% with EPINEPHrine 1:100,000 20 ML MDV INJECT ONE (09:30)
[2021-04-23] MEDS: Bupivacaine 0.25% 10 ML SDV INJECT ONE (09:31)
== END 2021-04-23 11:27 | disposition home or self-care (01) ==
LOC: LL.SDS 07:53
PROVIDERS: ATTEND Surgery
DX: K42.9 Umbilical hernia without obstruction or gangrene (principal); F41.8 Other specified anxiety disorders; I10 Essential (primary) hypertension; E78.5 Hyperlipidemia, unspecified; Z90.49 Acquired absence of other specified parts of digestive tract; Z98.890 Other specified postprocedural states; Z79.899 Other long term (current) drug therapy; Z88.8 Allergy status to other drugs, medicaments and biological substances
CPT/HCPCS: 49585; J1885; J2250; J2405; J2704; J3010; J3490; J7120

== ENCOUNTER 2023-10-01 18:12 | Emergency (ER) | payer BC ==
[2023-10-01] MEDS: Bacitracin Oint 1 GM U/D Packet TOP ONE (19:09)
[2023-10-01] MEDS: Lidocaine 1% 5 ML VIAL INJECT ONE (19:09)
== END 2023-10-01 19:14 | disposition home or self-care (01) ==
LOC: LL.ED 18:12
DX: S90.454A Superficial foreign body, right lesser toe(s), initial encounter (principal); Z88.8 Allergy status to other drugs, medicaments and biological substances; W45.8XXA Other foreign body or object entering through skin, initial encounter
CPT/HCPCS: 28190; 99282-25; J3490

== ENCOUNTER 2023-12-25 19:21 | Inpatient (IN) | payer BC ==
[2023-12-25 19:51] LABS: BASOPHILS ABSOLUTE AUTO 0.03 K/uL (0.00-0.20); BASOPHILS PERCENT AUTO 0.2 % (0.0-2.0); EOSINOPHILS ABSOLUTE AUTO 0.04 K/uL (0.00-0.50); EOSINOPHILS PERCENT AUTO 0.2 % (0.0-5.0); HEMATOCRIT 40.8 % (39.0-49.0); HEMOGLOBIN 14.2 g/dL (13.1-16.8); LYMPHOCYTES ABSOLUTE AUTO 1.62 K/uL (0.50-3.50); LYMPHOCYTES PERCENT AUTO 8.5 % (10.0-50.0); MEAN CORPUSCULAR HEMOGLOBIN 28.5 pg (28.2-33.3); MEAN CORPUSCULAR HGB CONC 34.8 g/dL (31.7-36.0); MEAN CORPUSCULAR VOLUME 81.8 fL (84.0-98.0); MONOCYTES ABSOLUTE AUTO 1.52 K/uL (0.00-1.00); NEUTROPHILS PERCENT AUTO 83.1 % (45.0-80.0); PLATELET COUNT,PLT 307 K/uL (150-350); RED BLOOD CELL COUNT 4.99 M/uL (4.33-5.41)
[2023-12-25] MEDS: Lactated Ringers 1,000 ML IV ONE (19:52)
[2023-12-25] MEDS: Ibuprofen 600 MG Tab PO ONE (20:05)
[2023-12-25] MEDS: Piperacillin/Tazobactam 4.5 GM in Sodium Chloride 0.9% 100 ML IV ONE (20:05)
[2023-12-25] MEDS: Acetaminophen 500 MG Tab PO ONE (20:05)
[2023-12-25 20:11] LABS: ALBUMIN 3.2 g/dL (3.4-5.0); BILIRUBIN TOTAL 0.4 mg/dL (0.2-1.0); CALCIUM 8.6 mg/dL (8.5-10.1); CARBON DIOXIDE,CO2 30.2 mmol/L (21.0-32.0); CREATININE 1.51 mg/dL (0.51-1.17); EST CRCL DRUG DOSING (CG) 63.94 mL/min; MAGNESIUM 2.2 mg/dL (1.8-2.4); POTASSIUM,K 3.4 mmol/L (3.5-5.1); PROTEIN TOTAL,TP 7.4 g/dL (6.4-8.2)
[2023-12-25 20:16] LABS: LACTIC ACID 1.1 mmol/L (0.4-2.0)
[2023-12-25 20:21] LABS: ANION GAP 14.2 meq/L (7-15)
[2023-12-25 20:29] LABS: CORONAVIRUS COVID-19 NAA NEGATIVE (NEGATIVE); INFLUENZA A NAA NEGATIVE (NEGATIVE); INFLUENZA B NAA NEGATIVE (NEGATIVE); RESPIRATORY SYNCYTIAL VIR NAA NEGATIVE (NEGATIVE)
[2023-12-25] MEDS: Potassium Bicarbonate/Cit Ac 20 MEQ Effervescent Tab PO ONE (22:18)
[2023-12-25] MEDS: Sodium Chloride 0.9% 1,000 ML IV ONE (22:18)
[2023-12-25] MEDS ORDERED: Ibuprofen 600 MG Tab PO PRN (22:45)
[2023-12-25] MEDS ORDERED: Ondansetron 4 MG/2 ML SDV IVPUSH PRN (22:45)
[2023-12-25] MEDS ORDERED: Temazepam 15 MG Cap PO PRN (22:45)
[2023-12-25 23:08] LABS: APPEARANCE,URINE SLIGHTLY CLOUDY; BILIRUBIN,URINE NEGATIVE (NEGATIVE); COLOR,URINE YELLOW; GLUCOSE,URINE NEGATIVE (NEGATIVE); KETONES,URINE TRACE mg/dL (NEGATIVE); LEUKOCYTE ESTERASE,URINE SMALL (NEGATIVE); NITRITE,URINE POSITIVE (NEGATIVE); OCCULT BLOOD,URINE MODERATE (NEGATIVE); PROTEIN,URINE 100 mg/dL (NEGATIVE); UROBILINOGEN,URINE 0.2 E.U./dL (0.2-1.0)
[2023-12-25 23:15] LABS: EPITHELIAL CELLS,URINE RARE /LPF; RBC,URINE 0-5 /HPF; WBC,URINE >100 /HPF
[2023-12-25 23:16] LABS: BACTERIA,URINE FEW /HPF (NONE TO FEW)
[2023-12-26] MEDS: QUEtiapine 25 MG Tab PO ONE (00:35)
[2023-12-26] MEDS: amLODIPine 5 MG Tab PO SCH (00:36)
[2023-12-26] MEDS: QUEtiapine 100 MG Tab PO SCH (01:05)
[2023-12-26] MEDS: Piperacillin/Tazobactam 3.375 GM in Sodium Chloride 0.9% 100 ML IV SCH (02:17)
[2023-12-26] MEDS: Lactated Ringers 1,000 ML IV SCH (02:17)
[2023-12-26] MEDS: Acetaminophen 325 MG Tab PO PRN (05:06)
[2023-12-26 06:35] LABS: BASOPHILS ABSOLUTE AUTO 0.02 K/uL (0.00-0.20); BASOPHILS PERCENT AUTO 0.1 % (0.0-2.0); EOSINOPHILS ABSOLUTE AUTO 0.03 K/uL (0.00-0.50); EOSINOPHILS PERCENT AUTO 0.2 % (0.0-5.0); HEMATOCRIT 37.4 % (39.0-49.0); HEMOGLOBIN 12.9 g/dL (13.1-16.8); LYMPHOCYTES ABSOLUTE AUTO 1.21 K/uL (0.50-3.50); LYMPHOCYTES PERCENT AUTO 8.4 % (10.0-50.0); MEAN CORPUSCULAR HEMOGLOBIN 28.2 pg (28.2-33.3); MEAN CORPUSCULAR HGB CONC 34.5 g/dL (31.7-36.0); MEAN CORPUSCULAR VOLUME 81.8 fL (84.0-98.0); MONOCYTES PERCENT AUTO 9.8 % (2.0-14.0); NEUTROPHILS ABSOLUTE AUTO 11.67 K/uL (1.40-7.00); NEUTROPHILS PERCENT AUTO 81.5 % (45.0-80.0); PLATELET COUNT,PLT 272 K/uL (150-350); RED BLOOD CELL COUNT 4.57 M/uL (4.33-5.41); RED CELL DISTRIBUTION WIDTH 13.8 % (11.2-14.1); WHITE BLOOD CELL COUNT,WBC 14.3 K/uL (4.0-10.2)
[2023-12-26 07:00] LABS: ALBUMIN 2.8 g/dL (3.4-5.0); ANION GAP 11.6 meq/L (7-15); BILIRUBIN TOTAL 0.4 mg/dL (0.2-1.0); CALCIUM 8.4 mg/dL (8.5-10.1); CARBON DIOXIDE,CO2 27.4 mmol/L (21.0-32.0); CREATININE 1.27 mg/dL (0.51-1.17); EST CRCL DRUG DOSING (CG) 76.02 mL/min; POTASSIUM,K 3.7 mmol/L (3.5-5.1); PROTEIN TOTAL,TP 6.3 g/dL (6.4-8.2)
[2023-12-26] MEDS: traMADol 50 MG Tab PO SCH (08:06)
[2023-12-26] MEDS ORDERED: Baclofen 10 MG Tab PO PRN (08:09)
[2023-12-26] MEDS: Sodium Chloride 0.9% 10 ML Syringe FLUSH PRN (08:42)
[2023-12-26] MEDS: cefTRIAXone 2 GM in Sodium Chloride 0.9% 100 ML IV SCH (08:42)
[2023-12-26] MEDS: Hydrochlorothiazide 25 MG Tab PO SCH (08:51)
[2023-12-26] MEDS: carBAMazepine 100 MG Cap.ER PO SCH (08:52)
[2023-12-26] MEDS: Enoxaparin 30 MG/0.3 ML Syringe SUBCUT SCH (09:24)
[2023-12-26] MEDS: Sodium Chloride 0.9% 1,000 ML IV SCH (10:32)
[2023-12-26] MEDS: QUEtiapine 25 MG Tab PO SCH (19:18)
[2023-12-26] MEDS: Pantoprazole 40 MG Tab.CR PO SCH (19:20)
[2023-12-27 07:27] LABS: BASOPHILS ABSOLUTE AUTO 0.02 K/uL (0.00-0.20); BASOPHILS PERCENT AUTO 0.2 % (0.0-2.0); EOSINOPHILS ABSOLUTE AUTO 0.04 K/uL (0.00-0.50); EOSINOPHILS PERCENT AUTO 0.4 % (0.0-5.0); HEMATOCRIT 38.8 % (39.0-49.0); HEMOGLOBIN 13.1 g/dL (13.1-16.8); LYMPHOCYTES ABSOLUTE AUTO 1.88 K/uL (0.50-3.50); LYMPHOCYTES PERCENT AUTO 18.1 % (10.0-50.0); MEAN CORPUSCULAR HGB CONC 33.8 g/dL (31.7-36.0); MEAN CORPUSCULAR VOLUME 82.9 fL (84.0-98.0); MONOCYTES PERCENT AUTO 13.5 % (2.0-14.0); NEUTROPHILS ABSOLUTE AUTO 7.05 K/uL (1.40-7.00); NEUTROPHILS PERCENT AUTO 67.8 % (45.0-80.0); PLATELET COUNT,PLT 267 K/uL (150-350); RED BLOOD CELL COUNT 4.68 M/uL (4.33-5.41); RED CELL DISTRIBUTION WIDTH 13.9 % (11.2-14.1); WHITE BLOOD CELL COUNT,WBC 10.4 K/uL (4.0-10.2)
[2023-12-27 08:07] LABS: ANION GAP 9.5 meq/L (7-15); CALCIUM 8.7 mg/dL (8.5-10.1); CARBON DIOXIDE,CO2 30.5 mmol/L (21.0-32.0); CREATININE 1.32 mg/dL (0.51-1.17); EST CRCL DRUG DOSING (CG) 73.14 mL/min; POTASSIUM,K 3.5 mmol/L (3.5-5.1)
[2023-12-27] MEDS: Losartan 50 MG Tab PO SCH (08:09)
[2023-12-27] MEDS: CARBAMAZEPINE 400 MG PO SCH (08:18)
[2023-12-27 15:47] LABS: C.TRACHOMATIS BY TMA Negative (Negative); N.GONORRHOEAE BY TMA Negative (Negative); SOURCE URINE
== END 2023-12-27 15:48 | disposition home or self-care (01) | DRG 720 ==
LOC: LL.ED 19:21 → LL.MS 22:30
PROVIDERS: ADMIT Emergency Medicine; ATTEND Emergency Medicine
DX: A41.51 Sepsis due to Escherichia coli [E. coli] (principal); N39.0 Urinary tract infection, site not specified; E86.0 Dehydration; E66.9 Obesity, unspecified; F41.9 Anxiety disorder, unspecified; F31.9 Bipolar disorder, unspecified; Z68.30 Body mass index [BMI] 30.0-30.9, adult; D64.9 Anemia, unspecified; M19.90 Unspecified osteoarthritis, unspecified site; E78.00 Pure hypercholesterolemia, unspecified; H91.90 Unspecified hearing loss, unspecified ear; K21.9 Gastro-esophageal reflux disease without esophagitis; G62.9 Polyneuropathy, unspecified; I12.9 Hypertensive chronic kidney disease with stage 1 through stage 4 chronic kidney disease, or unspecified chronic kidney disease; N18.9 Chronic kidney disease, unspecified; G89.29 Other chronic pain; M54.9 Dorsalgia, unspecified; R63.4 Abnormal weight loss; Z90.89 Acquired absence of other organs; Z98.890 Other specified postprocedural states; Z79.899 Other long term (current) drug therapy
CPT/HCPCS: 0241U; 36415; 71045; 80048; 80053; 81001; 83605; 83735; 85025; 87040; 87086; 87088; 87186; 87491; 87591; 93005; 93010; 96361; 96365; 99223; 99233; 99238; 99285-25; A9270-GY; J0696; J1650; J2543; J3490; J7030; J7120

== ENCOUNTER 2024-01-19 13:19 | Observation (INO) | payer BC ==
[2024-01-19 13:43] LABS: BASOPHILS ABSOLUTE AUTO 0.04 K/uL (0.00-0.20); BASOPHILS PERCENT AUTO 0.2 % (0.0-2.0); EOSINOPHILS ABSOLUTE AUTO 0.01 K/uL (0.00-0.50); EOSINOPHILS PERCENT AUTO 0.1 % (0.0-5.0); HEMATOCRIT 42.3 % (39.0-49.0); HEMOGLOBIN 14.2 g/dL (13.1-16.8); IMMATURE GRAN ABSOLUTE AUTO 0.06 10^3/uL (0.00-0.50); IMMATURE GRAN PERCENT AUTO 0.3 % (0.0-5.0); LYMPHOCYTES ABSOLUTE AUTO 1.05 K/uL (0.50-3.50); LYMPHOCYTES PERCENT AUTO 5.9 % (10.0-50.0); MEAN CORPUSCULAR HEMOGLOBIN 27.5 pg (28.2-33.3); MEAN CORPUSCULAR HGB CONC 33.6 g/dL (31.7-36.0); MONOCYTES ABSOLUTE AUTO 2.12 K/uL (0.00-1.00); MONOCYTES PERCENT AUTO 11.9 % (2.0-14.0); NEUTROPHILS ABSOLUTE AUTO 14.56 K/uL (1.40-7.00); NEUTROPHILS PERCENT AUTO 81.6 % (45.0-80.0); PLATELET COUNT,PLT 210 K/uL (150-350); RED BLOOD CELL COUNT 5.16 M/uL (4.33-5.41); RED CELL DISTRIBUTION WIDTH 13.6 % (11.2-14.1); WHITE BLOOD CELL COUNT,WBC 17.8 K/uL (4.0-10.2)
[2024-01-19 14:03] LABS: ALANINE AMINOTRANSFERASE,ALT 24 U/L (12-78); ALBUMIN 3.3 g/dL (3.4-5.0); ALKALINE PHOSPHATASE 85 IU/L (46-116); ASPARTATE AMNIOTRANSFERASE,AST 14 U/L (15-37); BILIRUBIN TOTAL 0.4 mg/dL (0.2-1.0); BLOOD UREA NITROGEN,BUN 21 mg/dL (7-18); CALCIUM 8.9 mg/dL (8.5-10.1); CARBON DIOXIDE,CO2 26.8 mmol/L (21.0-32.0); CHLORIDE,CL 99 mmol/L (98-107); CREATININE 1.61 mg/dL (0.51-1.17); GLUCOSE RANDOM 181 mg/dL (70-99); POTASSIUM,K 3.4 mmol/L (3.5-5.1); PROTEIN TOTAL,TP 7.4 g/dL (6.4-8.2); SODIUM,NA 137 mmol/L (136-145)
[2024-01-19 14:06] LABS: ANION GAP 14.6 meq/L (7-15); ESTIMATED GFR 51 mL/min (>=60)
[2024-01-19 14:16] LABS: APPEARANCE,URINE SLIGHTLY CLOUDY; BILIRUBIN,URINE NEGATIVE (NEGATIVE); COLOR,URINE YELLOW; GLUCOSE,URINE NEGATIVE (NEGATIVE); KETONES,URINE TRACE mg/dL (NEGATIVE); LEUKOCYTE ESTERASE,URINE MODERATE (NEGATIVE); NITRITE,URINE POSITIVE (NEGATIVE); OCCULT BLOOD,URINE LARGE (NEGATIVE); PH,URINE 6.5 (5.0-9.0); PROTEIN,URINE 100 mg/dL (NEGATIVE); UROBILINOGEN,URINE 0.2 E.U./dL (0.2-1.0)
[2024-01-19] MEDS: Sodium Chloride 0.9% 1,000 ML IV ONE (14:20)
[2024-01-19] MEDS: Levofloxacin/Dextrose 5%-Water 500 MG in Premix Bag 1 BAG IV ONE (14:20)
[2024-01-19 14:28] LABS: EPITHELIAL CELLS,URINE FEW /LPF; RBC,URINE 30-40 /HPF; WBC,URINE >100 /HPF
[2024-01-19 14:29] LABS: BACTERIA,URINE MANY /HPF (NONE TO FEW)
[2024-01-19] MEDS ORDERED: Ondansetron 4 MG/2 ML SDV IVPUSH PRN (14:42)
[2024-01-19] MEDS: Iopamidol 612 MG/ML 100 ML Bottle IVPUSH ONE (16:06)
[2024-01-19 16:08] LABS: LACTIC ACID 0.6 mmol/L (0.4-2.0)
[2024-01-19] MEDS: Enoxaparin 40 MG/0.4 ML Syringe SUBCUT SCH ×2 (16:46→17:09)
[2024-01-19] MEDS: Sodium Chloride 0.9% 1,000 ML IV SCH (17:11)
[2024-01-19] MEDS: traMADol 50 MG Tab PO PRN (17:53)
[2024-01-19] MEDS ORDERED: Non-Formulary Medication 1 Each (Tadalafil [Cialis] 20 MG Tablet) PO PRN (18:47)
[2024-01-19] MEDS ORDERED: Baclofen 10 MG Tab PO PRN (18:47)
[2024-01-19] MEDS: Acetaminophen 325 MG Tab PO PRN (19:28)
[2024-01-19] MEDS: QUEtiapine 100 MG Tab PO SCH (19:29)
[2024-01-20] MEDS: traMADol 50 MG Tab PO PRN (03:09)
[2024-01-20 07:21] LABS: BASOPHILS ABSOLUTE AUTO 0.02 K/uL (0.00-0.20); BASOPHILS PERCENT AUTO 0.1 % (0.0-2.0); EOSINOPHILS ABSOLUTE AUTO 0.07 K/uL (0.00-0.50); EOSINOPHILS PERCENT AUTO 0.5 % (0.0-5.0); HEMATOCRIT 38.5 % (39.0-49.0); HEMOGLOBIN 12.9 g/dL (13.1-16.8); IMMATURE GRAN ABSOLUTE AUTO 0.05 10^3/uL (0.00-0.50); IMMATURE GRAN PERCENT AUTO 0.4 % (0.0-5.0); LYMPHOCYTES ABSOLUTE AUTO 2.22 K/uL (0.50-3.50); LYMPHOCYTES PERCENT AUTO 16.4 % (10.0-50.0); MEAN CORPUSCULAR HEMOGLOBIN 27.6 pg (28.2-33.3); MEAN CORPUSCULAR HGB CONC 33.5 g/dL (31.7-36.0); MEAN CORPUSCULAR VOLUME 82.3 fL (84.0-98.0); MONOCYTES ABSOLUTE AUTO 2.13 K/uL (0.00-1.00); MONOCYTES PERCENT AUTO 15.7 % (2.0-14.0); NEUTROPHILS ABSOLUTE AUTO 9.06 K/uL (1.40-7.00); NEUTROPHILS PERCENT AUTO 66.9 % (45.0-80.0); PLATELET COUNT,PLT 196 K/uL (150-350); RED BLOOD CELL COUNT 4.68 M/uL (4.33-5.41); RED CELL DISTRIBUTION WIDTH 13.5 % (11.2-14.1); WHITE BLOOD CELL COUNT,WBC 13.6 K/uL (4.0-10.2)
[2024-01-20 07:40] LABS: ANION GAP 7.5 meq/L (7-15); CALCIUM 8.4 mg/dL (8.5-10.1); CARBON DIOXIDE,CO2 29.5 mmol/L (21.0-32.0); CREATININE 1.26 mg/dL (0.51-1.17); EST CRCL DRUG DOSING (CG) 76.62 mL/min; POTASSIUM,K 3.9 mmol/L (3.5-5.1)
[2024-01-20] MEDS: carBAMazepine 100 MG Cap.ER PO SCH (07:49)
[2024-01-20] MEDS: Hydrochlorothiazide 25 MG Tab PO SCH (07:50)
[2024-01-20] MEDS: Losartan 50 MG Tab PO SCH (07:50)
[2024-01-20] MEDS: amLODIPine 5 MG Tab PO SCH (07:50)
[2024-01-20] MEDS: Levofloxacin/Dextrose 5%-Water 500 MG in Premix Bag 1 BAG IV ONE (09:45)
[2024-01-20] MEDS: Sodium Chloride 0.9% 10 ML Syringe FLUSH PRN (09:46)
== END 2024-01-20 13:20 | disposition home or self-care (01) ==
LOC: LL.ED 13:19 → LL.MS 14:22
PROVIDERS: ADMIT Emergency Medicine; ATTEND Emergency Medicine
DX: N12 Tubulo-interstitial nephritis, not specified as acute or chronic (principal); N39.0 Urinary tract infection, site not specified; I10 Essential (primary) hypertension; K21.9 Gastro-esophageal reflux disease without esophagitis; F31.9 Bipolar disorder, unspecified; Z79.899 Other long term (current) drug therapy; E78.00 Pure hypercholesterolemia, unspecified
CPT/HCPCS: 36415; 74178; 80048; 80053; 81001; 83605; 85025; 87086; 87088; 87186; 96361; 96365; 96366; 96372; 99284; A9270; G0378; J1650; J1956; J7030; Q9967; 99223; 99238; J3490